=== PATIENT | female | born 1960 | race Caucasian/White ===

== ENCOUNTER → 2018-10-06 14:12 | Outpatient (CLI) | payer OTHER, SELFPAY ==
--- NOTE | 2018-10-06 14:18 | RAD_ITS ---
STUDY: X-RAY - PELVIS REASON FOR EXAM: Female, 57 years old. Inflammatory polyarthropathy. TECHNIQUE: One view of the pelvis was obtained. COMPARISON: None. FINDINGS: There is a non-specific bowel gas pattern. Normal visualized soft tissue structures. Normal bilateral iliac wings, sacroiliac joints and visualized sacrum. Normal visualized bilateral superior and inferior pubic rami. Normal pubic symphysis. Normal ischial tuberosities. Normal visualized right femoral head. Normal right acetabulum. Normal right hip joint. Normal visualized left femoral head. Normal left acetabulum. Normal left hip joint. RAD/Pelvis 1 or 2 Views IMPRESSION: Normal x-ray examination of the pelvis. Electronically Signed: Ramon Villegas MD at 0:00 EST , Service support ,
[2018-10-06 16:10] LABS: Vitamin D,25 Hydroxy 24.9 ng/mL (29.95-100.01)
[2018-10-06 16:11] LABS: AST(SGOT) 19 U/L (15-37); Alanine Aminotransfer ALT/SGPT 29 U/L (13-56); Albumin, Serum 3.9 g/dL (3.2-5.0); Alkaline Phosphatase 69 U/L (45-117); Anion Gap 8 (5-15); BUN 10 mg/dL (7-18); BUN/Creat Ratio 12.8 RATIO (10-20); CRP < 2.90 mg/L (0.0-3.0); Calcium,Total 8.6 mg/dL (8.5-10.1); Chloride 102 mmol/L (98-107); Creatinine, Serum 0.78 mg/dL (0.55-1.02); EST Glomerular Filtration Rate 80 mL/min (>60); Est Glom Filt Rate - Afr Amer 97 mL/min (>60); Globulin 3.9 g/dL (2.2-4.2); Glucose 95 mg/dL (74-106); Protein, Total 7.8 g/dL (6.4-8.2); Rheumatoid Factor < 10.0 IU/mL (<15); Sodium Level 139 mmol/L (136-145)
[2018-10-06 16:42] LABS: Erythrocyte Sedimentation Rate 2 mm/hr (0-30)
[2018-10-06 16:48] LABS: Absolute Lymphocyte Count 1.82 X10^3/ul (0.83-4.51); Absolute Neutrophil Count 4.6 X10^3/uL (2.0-7.7); Basophil# 0.04 X10^3/uL; Basophil% 0.6 % (0-1); Eosinophil# 0.19 X10^3/uL; Eosinophils% 2.7 % (0-5); Hematocrit 44.1 % (37-47); Hemoglobin 15.2 g/dl (12.0-15.0); Lymphocyte # 1.82 X10^3/ul (4.0); Lymphocyte % 25.4 % (19-41); Mean Corp Hgb Conc 34.5 g/gl (32-36); Mean Corpuscular Hgb 31.1 pg (27.0-32.0); Mean Corpuscular Volume 90.2 fL (81-99); Mean Platelet Vol. 10.5 fl (6.2-12.0); Monocyte# 0.49 X10^3/uL; Monocyte% 6.8 % (0-10); Neutrophil # 4.61 X10^3/uL (2.7-7.7); Neutrophil % 64.4 % (47-70); Platelet Count 291 K/mm3 (150-450); RBC Distribution Width SD 38.8 fl (35.1-43.9); Red Blood Count 4.89 M/mm3 (4.2-5.4); White Blood Count 7.2 K/mm3 (4.4-11.0)
[2018-10-06 17:00] LABS: POSITIVE COUNT NO; POSITIVE DIFFERENTIAL NO; POSITIVE MORPHOLOGY NO
[2018-10-09 12:11] LABS: ANTINUCLEAR ANTIBODIES DIRECT Negative (Negative)
[2018-10-14 09:38] LABS: HEPATITIS B SURFACE AG Negative (Negative); HLA B27 Negative (.); Hep B Surface Antibodies Non Reactive (.); Hep C Antibodies <0.1 s/co ratio (0.0-0.9)
== END ==
PROVIDERS: Family Provider Family Medicine; PCP Family Medicine; Referring Provider Internal Medicine Rheumatology; Visit Provider Internal Medicine Rheumatology
DX: M06.4 Inflammatory polyarthropathy (principal); M18.0 Bilateral primary osteoarthritis of first carpometacarpal joints
CPT/HCPCS: 36415; 72170; 80053; 81374; 82306; 85025; 85652; 86038; 86140; 86431; 86706; 86803; 87340

== ENCOUNTER → 2019-08-31 08:18 | Outpatient (CLI) | payer OTHER, SELFPAY ==
[2019-08-12 08:16] VITALS: BMI 18.3
--- NOTE | 2019-08-31 15:11 | PFTCOMP ---
COMPLETE PULMONARY FUNCTION TEST INTERPRETATION Brief HPI: Patient is a 58 year old female, currently under the care of myself, who presents to [facility] for complete pulmonary function tests secondary to diagnosis of dyspnea. Respiratory therapist reports good effort and reproducible results. Interpretation: Forced expiration spirometry shows no large airways obstructive ventilatory defect with an FEV1 of 82% predicted. There is no significant bronchodilator response by strict ATS criteria. Spirograms are of good quality and plateau normally. The respiratory flow volume loop shows a normal pattern. Lung volumes by body plethysmography show a normal total lung capacity at 4.93 L, 93% predicted. All other lung volumes are within normal limits. Diffusion capacity by carbon monoxide is normal at 103% predicted. The airway resistance is normal. No previous pulmonary function tests were available for review. Impression: These pulmonary function tests are within normal limits.
== END ==
PROVIDERS: Family Provider Family Medicine; PCP Family Medicine; Referring Provider Internal Medicine Critical Care Medicine; Visit Provider Internal Medicine Critical Care Medicine
DX: R06.00 Dyspnea, unspecified (principal)
CPT/HCPCS: 94060; 94726; 94729

== ENCOUNTER → 2020-10-20 10:58 | Outpatient (CLI) | payer OTHER, SELFPAY ==
[2020-10-04 14:07] VITALS: BMI 19.3
--- NOTE | 2020-10-20 11:04 | ECHOD_ITS ---
Reason For Study: PALPITATIONS Procedure This was a 2D Doppler, Color Flow transthoracic echocardiogram. Exam performed in department. Left Ventricle Normal LV size. The estimated ejection fraction is 60 %. Diastolic function is indeterminate. No regional wall motion abnormalities noted. Right Ventricle Normal RV size. Normal systolic function. Atria Normal left atrium. Normal right atrium. No doppler evidence for ASD. Mitral Valve There is no mitral valve stenosis. Mild (1+) mitral valve insufficiency. Tricuspid Valve There is no tricuspid stenosis. Trivial tricuspid valve insufficiency. Pulmonary artery systolic pressure is 20 mmHg. Aortic Valve Trisinus/trileaflet aortic valve. There is no aortic stenosis. No aortic valve insufficiency. Pulmonic Valve There is no pulmonic valvular stenosis. No pulmonic valve insufficiency. Great Vessels Normal aortic root. Pericardium/Pleural No pericardial effusion. MMode/2D Measurements & Calculations LVIDd: 3.8 cm IVSd: 0.73 cm Ao root diam: 3.1 cm LVIDs: 2.5 cm LVPWd: 0.87 cm RVDd: 3.2 cm FS: 34.9 % LAV(MOD-bp): 24.6 ml LVAd ap4: 20.8 cm2 SV(MOD-sp4): 27.1 ml LAV(MOD-bp) Indexed: 15.3 ml/m2 EDV(MOD-sp4): 49.4 ml LAV(MOD-sp2): 19.4 ml EDV(sp4-el): 51.5 ml LAV(MOD-sp4): 26.7 ml LVAs ap4: 12.5 cm2 ESV(MOD-sp4): 22.3 ml ESV(sp4-el): 22.8 ml EF(MOD-sp4): 54.9 % EF(sp4-el): 55.7 % SV(sp4-el): 28.7 ml LA A4 area: 11.5 cm2 LA dimension(2D): 3.2 cm RA A4 area: 8.8 cm2 Time Measurements MV dec time: 0.17 sec Doppler Measurements & Calculations MV E max leonides: 93.3 cm/sec Lat Peak E' Leonides: 7.4 cm/sec Med Peak E' Leonides: 5.1 cm/sec MV A max leonides: 70.0 cm/sec E/E' lat: 12.7 E/E' med: 18.3 MV E/A: 1.3 Ao V2 max: 95.7 cm/sec LV V1 max: 87.9 cm/sec PA V2 max: 83.6 cm/sec Ao max P.7 mmHg LV V1 max P.1 mmHg TR max leonides: 197.2 cm/sec TR max P.6 mmHg Interpretation Summary The estimated ejection fraction is 60 %. Diastolic function is indeterminate. Mild (1+) mitral valve insufficiency. Ordering Physician: Breana Noriega Referring Physician: AARON WILSON Performed By: Rica Sánchez, DENISE, RVT
--- NOTE | 2020-10-21 16:00 | STRESSREP ---
Stress Test Report Date: 10/20/2020 Procedure: Exercise tolerance test Indications: Chest pain Consent: Per the patient Procedure: The patient exercised on a Gavino protocol for 7 minutes achieving a peak heart rate of 150 bpm (93% predicted maximal heart rate) with a peak blood pressure 140/84 mmHg and a peak MET capacity of approximately 8.5 MET's. The baseline ECG demonstrated normal sinus rhythm. The peak exercise ECG demonstrated no significant ischemic ST-T changes. [There were no cardiac dysrhythmias pretest, during exercise, or recovery]. The functional capacity was considered normal for age. Patient had 4-5 over 10 chest tightness at peak exercise The examination was discontinued secondary to dyspnea, chest discomfort. Impression: 1. Technically adequate (percent predicted maximal heart rate greater than 85%) exercise tolerance test 2. Stress test is positive for exercise-induced chest pain. 3. Stress test test is negative for exercise-induced EKG changes of ischemia. 4. Functional capacity is normal for age This note was generated with [employer] software. It may contain incorrect words, spelling, and punctuation that were not noted in checking the note before signing.
== END ==
PROVIDERS: PCP Family Medicine; Referring Provider Specialist; Visit Provider Specialist
DX: R00.2 Palpitations (principal); R07.9 Chest pain, unspecified
CPT/HCPCS: 93017; 93306

== ENCOUNTER 2021-03-27 12:00 | Outpatient (RCR) | payer OTHER, SELFPAY ==
[2021-01-02 11:02] VITALS: BMI 20.5
--- NOTE | 2021-02-17 08:25 | HP.PTEVAL_ITS ---
Patient's Visit Information LOLA FALCON is a 60 year old F referred to Physical Therapy by Dr. Doni Marinelli MD with a diagnosis of adhesive capsulitis L shoulder. Date of Evaluation: 02/16/21 Physical Therapist: Rangel Whitaker DPT - Visit Plan Frequency: 2-3x /Week Duration: 4-6 Weeks Plan: Manipulation 02/15, improve ROM, strength, posture. progress end range PROM, AAROM, AROM as tolerated. Stress HEP consistency. Once ROM has been restored add in progressing scapular stability/strengthening. IE HEP: wall wash, table walk away, cane flexion, cane abduction - Subjective Pt reported that she has shoulder problems for 3 months. was helping sister move and it hurting more and then locked up. 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 Pt got maniupulation 02/15 and is feeling good so far still has nerve block. Pt reports that she had uppper trap tightness prior manipulation causing migraines. Pt is active- kayaking, gardening, sewing. pain: 7-8/10 sharp at top of shoulder, took pain pill this morning (percoset), still feels numbness from nerve block. sleep: slept in recliner and propped up arm on pillow. Meds: none besdies pain pills. PMHx: mitral valve prolapse, slightly high BP. lives at home with and daughter. goals: wants to improve ROM - Pain L shoulder Pain Intensity (Out of 10): 2 Pain Intensity Range: 0, 6 - Objective Posture: FH,RS, arm in sling. Gait: arm in sling with decreased arm swing. sensation: decreased sensation to light touch distal to biceps insertion. pt reports increasing sensation as session continued. AROM: flex: 30, abd: 25, unable to perform rest d/t numbness from nerve block. PROM: flex: 100, abd: 105, ER: 5 IR: to stomach. Strength: R shoulder: flex: 4+/5, abd/add: 4/5, ER/IR: 4/5, elbow: flex/ext: 5/5, biomedical engineering technician: 5/5 L UE not tested at this date d/t to presentation today - Goals Goal 1:: Pt will be I with HEP and progression Goal Time Frame: 4-6 Weeks Goal 2:: Pt will demonstrate improved PROM to WFL in flexion in order to promomte I functional mobility Goal Time Frame: 4-6 Weeks Goal 3:: Pt kathy demonstrate proper posture for entire session in order to promote scpaular stability Goal Time Frame: 4-6 Weeks Goal 4:: STG: Pt. to sleep without increase in symptoms. Goal Time Frame: 2-4 Weeks Goal 5:: STG: Pt. to have full L shoulder AROM with 0-1/10 pain in L shoulder. Goal Time Frame: 2-4 Weeks Goal 6:: LTG: PT. to have full L shoulder strength 5/5 without increase in symptoms. Goal Time Frame: 4-6 Weeks - Rehabilitation Potential Physical Therapy Diagnosis: Pt presents with decreased ROM, decreased strength in order to improve I functional mobility. Pt. would benefit from PT Rehabilitation Potential: Good - Anticipated Interventions Patient/Client Instruction: Educate patient on: Condition, Plan of Care For the Purpose of:: To improve muscle performance and motor function, To improve self management, To prevent re-injury, To improve ability to perform tasks related to life management, To improve tolerance to ADL's Therapeutic Exercise to Include: Strength training, Power training, Endurance training, Balance training, Coordination, Agility training, Body mechanics, Postural training, Flexibilty training, Passive ROM, Active ROM, Scapular Strength/Stabilization For the Purpose of:: To improve muscle performance and motor function, To increase tolerance to activity/condition/position Cryotherapy (ice pack, ice massage): Yes Thermo therapy (hot pack): Yes For the Purpose of:: To decrease pain, To increase ROM Thank you for the opportunity to evaluate your patient. For Medicare and Medicare HMO plans, please review the plan of care and approve it. It will need to be FAXED BACK to us at [phone] for Medicare purposes. For Medicare only, by signing this I certify the plan of care. Please let me know if there are questions or concerns regarding this plan of care. Physician Signature: Date:
--- NOTE | 2021-03-15 14:45 | HP.PTREVAL ---
Dr. Doni Marinelli MD, It has been my pleasure to treat LOLA FALCON over the last 10 visits for adhesive capsulitis L shoulder. Please see the progress note below for an update on the physical therapy plan of care! Subjective: Pt. reports I am doing pretty well, I think I am about 90% better overall. She reports having difficulty lifting her arm still. No issues with sleeping. Pt. reports wanting to get her strength back as well. Objective/Function: PROM: L shoulder- flexion 165deg, abd 160deg, ER at 90deg 85deg., IR at 90deg of abd 40deg. AROM: L shoulder- flexion 135deg, abd 125deg, functional ER C4 aberrant motion (difficulty getting ER motion, relies on flexion), functional IR L4. MMT: L shoulder- flexion 4/5, abd 4-/5, ER 4-/5, IR 5/5, ext 5/5. Pt. presents with greater weakness in all over head positions. Pt. still presenst with end range loss of motion, with empty end feel secondary to pain. Pain associated at subacromial space and tightness at lats on L side. Plan Plan: Added x2 per week for another 3-4 weeks with focus on end range of motion and progressing strengthening of deltoid and RTC. Goals Goal 1:: Pt will be I with HEP and progression Goal Time Frame: 4-6 Weeks Goal 2:: Pt will demonstrate improved PROM to WFL in flexion in order to promomte I functional mobility Goal Time Frame: 4-6 Weeks Goal 3:: Pt kathy demonstrate proper posture for entire session in order to promote scpaular stability Goal Time Frame: 4-6 Weeks Goal 4:: STG: Pt. to sleep without increase in symptoms. Goal Time Frame: 2-4 Weeks Goal 5:: STG: Pt. to have full L shoulder AROM with 0-1/10 pain in L shoulder. Goal Time Frame: 2-4 Weeks Goal 6:: LTG: PT. to have full L shoulder strength 5/5 without increase in symptoms. Goal Time Frame: 4-6 Weeks Anticipated Interventions Patient/Client Instruction: Educate patient on: Condition, Plan of Care For the Purpose of:: To improve muscle performance and motor function, To improve self management, To prevent re-injury, To improve ability to perform tasks related to life management, To improve tolerance to ADL's Therapeutic Exercise to Include: Strength training, Power training, Endurance training, Balance training, Coordination, Agility training, Body mechanics, Postural training, Flexibilty training, Passive ROM, Active ROM, Scapular Strength/Stabilization For the Purpose of:: To improve muscle performance and motor function, To increase tolerance to activity/condition/position Cryotherapy (ice pack, ice massage): Yes Thermo therapy (hot pack): Yes For the Purpose of:: To decrease pain, To increase ROM Please do not hesitate to contact me at [phone] by phone or if you have questions or concerns regarding this new plan of care! Sincerely, RUSSEL SeayT
== END 2021-03-27 19:00 | disposition home or self-care (01) ==
LOC: PT 12:00
PROVIDERS: PCP Family Medicine; Referring Provider Orthopaedic Surgery; Visit Provider Orthopaedic Surgery
DX: M75.02 Adhesive capsulitis of left shoulder (principal)
CPT/HCPCS: 97110; 97140; 97162; 97164; 97530

== ENCOUNTER → 2021-11-23 16:28 | Outpatient (CLI) | payer OTHER, SELFPAY ==
[2021-11-23 17:21] LABS: Absolute Lymphocyte Count 2.38 X10^3/uL (0.83-4.51); Absolute Neutrophil Count 3.2 X10^3/uL (2.0-7.7); Basophil# 0.06 X10^3/uL; Eosinophil# 0.19 X10^3/uL; Hematocrit 41.8 % (37-47); Hemoglobin 14.2 g/dL (12.0-15.0); Lymphocyte # 2.38 X10^3/ul (0.83-4.51); Lymphocyte % 37.8 % (19-41); Mean Corpuscular Volume 88.4 fL (81-99); Mean Platelet Vol. 9.6 fl (6.2-12.0); Monocyte# 0.43 X10^3/uL; Monocyte% 6.8 % (0-10); NRBC Flagged by Analyzer 0 % (0-5); Neutrophil # 3.23 X10^3/uL (2.7-7.7); Neutrophil % 51.2 % (47-70); Platelet Count 307 K/mm3 (150-450); RBC Distribution Width SD 38.8 fl (35.1-43.9); Red Blood Count 4.73 M/mm3 (4.2-5.4); White Blood Count 6.3 K/mm3 (4.4-11.0)
[2021-11-23 18:28] LABS: Vitamin D,25 Hydroxy 32.6 ng/mL
[2021-11-23 18:30] LABS: ALB/GLOB Ratio 1.1 RATIO (0.9-2.4); AST(SGOT) 18 U/L (15-37); Alanine Aminotransfer ALT/SGPT 28 U/L (13-56); Albumin, Serum 3.6 g/dL (3.2-5.0); Alkaline Phosphatase 63 U/L (45-117); Anion Gap 10 (5-15); BUN 8 mg/dL (7-18); BUN/Creat Ratio 11.4 RATIO (10-20); Calcium,Total 8.6 mg/dL (8.5-10.1); Chloride 106 mmol/L (98-107); EST Glomerular Filtration Rate 90 mL/min (>60); Est Glom Filt Rate - Afr Amer 109 mL/min (>60); Globulin 3.3 g/dL (2.2-4.2); Glucose 90 mg/dL (74-106); Potassium 4.1 mmol/L (3.5-5.1); Protein, Total 6.9 g/dL (6.4-8.2); Sodium Level 141 mmol/L (136-145)
== END ==
PROVIDERS: PCP Family Medicine; Referring Provider Family Medicine; Visit Provider Family Medicine
DX: K21.9 Gastro-esophageal reflux disease without esophagitis (principal); E55.9 Vitamin D deficiency, unspecified
CPT/HCPCS: 36415; 80053; 82306; 85025

== ENCOUNTER 2022-03-31 16:30 | Emergency (ER) | payer OTHER, SELFPAY ==
[2022-03-31 16:32] VITALS: BP 129/82; PULSE 78; RESP 16; TEMP 36.8; O2SAT 95; BMI 18.6
--- NOTE | 2022-03-31 16:48 | EX.ED.DYSGE1 ---
HPI History of Present Illness Chief Complaint: Lower Extremity Injury Informant: patient Narrative Narrative: 61-year-old female arriving to the emergency department for evaluation after a fall. Patient states that she was attempting to ride a skateboard when she slipped off of it and fell onto her back. She notes pain in the left elbow with associated abrasions as well as pain in the lower back. She states that it is extremely painful to attempt to bear any weight. She states she feels a clicking sensation in her left elbow. She denies any upper back neck head chest or abdominal symptoms. PFSH PFS Medical History Acute pharyngitis, unspecified Cystocele Diverticulosis Dyspnea History of intestinal obstruction History of kidney stones Hypotension Insomnia Lab test negative for COVID-19 virus Macular degeneration Mild intermittent asthma Mitral valve prolapse Osteoarthritis Osteopenia Palpitations Uterine prolapse Home Medications calcium carbonate 500 mg calcium (1,250 mg) tablet 500 mg PO DAILY 10/04/20 [History Last Taken Unknown] cholecalciferol (vitamin D3) 125 mcg (5,000 unit) tablet 125 mcg PO DAILY 10/04/20 [History Last Taken Unknown] ibandronate 150 mg tablet 150 mg PO QMONTH 01/02/22 [History Last Taken Unknown] omeprazole 20 mg capsule,delayed release 20 mg PO DAILY 01/02/22 [History Last Taken Unknown] hydrocodone-acetaminophen 1 tab PO Q6H PRN PRN 3 Days #12 tablet 03/31/22 [Rx Last Taken Unknown] Allergy/AdvReac Type Severity Reaction Status Date / Time No Known Allergies Allergy Verified 03/31/22 16:36 Family History Mother COPD (chronic obstructive pulmonary disease) Hypertension Arrhythmia Surgical History History of colonoscopy History of laparoscopy Social History Smoking Status: Never smoker alcohol intake: current alcohol intake frequency: a few times a month Alcohol type: wine substance use type: does not use caffeine: Yes Type: coffee ROS ROS ED Constitutional Constitutional ED: Denies chills, fever(s) or weight loss Eyes Eyes: Denies change in vision or diplopia ENT ENT ED: Denies ear pain, rhinorrhea or sore throat Cardiovascular Cardiovascular: Denies chest pain, orthopnea, palpitations or racing heartbeat Respiratory/Chest Respiratory/Chest: Denies cough, dyspnea or orthopnea Gastrointestinal Gastrointestinal: Denies abdominal pain, diarrhea, nausea or vomiting Genitourinary Genitourinary ED: Denies dysuria, hematuria or urinary frequency Musculoskeletal Musculoskeletal: Reports back pain and other Details: Left elbow pain ; Denies arthralgias or myalgias Integumentary Denies abscess or rash Neurologic Neurologic: Denies headache(s) or weakness Psychiatric Psychiatric: Denies anxiety, depression, suicidal ideation or suicidal thoughts Endocrine Endocrinology: Denies polydipsia, polyphagia or polyuria Allergic/Immunologic Allergic/Immunologic ED: Denies mouth swelling, tongue swelling or urticaria EXAM Physical Exam Const Vital Signs: 03/31/22 16:32 Temperature 98.2 F Temperature Source Oral Pulse Rate 78 Respiratory Rate 16 Blood Pressure 129/82 H Blood Pressure Mean 97 Pulse Ox 95 Oxygen Delivery Method Room Air Positive well nourished and well developed General Appearance ED: well developed HEENT Reports normocephalic, head/scalp atraumatic, TM's clear and moist mucous membranes Negative for trauma Tympanic Membrane ED: Yes TM's clear Eyes PERRL and EOMs intact bilaterally Neck no lymphadenopathy, supple and no JVD Resp normal respiratory effort and clear to auscultation bilaterally Cardio regular rate, regular rhythm and no murmurs GI normal to inspection, nondistended, normoactive bowel sounds and non-tender Palpation: soft Back/Spine no CVA tenderness and normal ROM Back/Spine Narrative: Patient has tenderness to palpation over the lower lumbar Extremity Extremity Narrative: Patient has contusion and abrasions to the left elbow. Painful range of motion. Neurovascular intact distal. General Extremety ED: Negative for edema General Extremity: Negative for edema Neuro oriented x3 and CN's II-XII intact bilaterally Sensorium / Orientation: alert Motor Exam: strength 5/5 throughout Psych mental status grossly normal Mood & Affect: Negative for depressed or tearful Skin no rashes or lesions noted and no wounds MDM MDM MDM Narrative Medical decision making narrative: My interpretation of the plain films of lumbar spine is no acute fracture. My interpretation of the plain films of the left elbow is a comminuted olecranon fracture. Patient was placed in a posterior long-arm splint made from [employer] and sling. She was given Thompson. Family has asked multiple times why we have not x-rayed her hips and the answer to that is that she has no pain in her hips. She points to the lower right lumbar area as the area that hurts. I specifically palpated the hips and the iliac crest in front of the family and the patient has no pain there. Therefore I do not feel that x-rays are indicated of the hip. Patient is able to ambulate down the hallway to the bathroom. Radiography Diagnostic Testing: Clinical Impression(s) from Imaging Studies Elbow X-Ray 03/31/22 17:04 IMPRESSION: Incompletely evaluated fracture olecranon with concern for intra-articular extension through the trochlear notch. Repeat lateral view is recommended. Electronically Signed: Osmar Merritt DO at 18:37 EDT , Lumbar Spine X-Ray 03/31/22 17:04 IMPRESSION: No evidence of lumbar spinal fracture or spondylolisthesis. Electronically Signed: Osmar Merritt DO at 18:32 EDT , Discharge Plan Triage Chief Complaint: Lower Extremity Injury ED Provider: Kartik Nolasco Dx/Rx/DC Orders Clinical Impression: Fracture of left olecranon process, Fall, Acute lumbar myofascial strain Prescriptions: New hydrocodone-acetaminophen [hydrocodone-acetaminophen] 1 TABLET tablet 1 tab PO Q6H PRN PRN (Reason: Pain) 3 Days Qty: 12 RF: 0 No Action cholecalciferol (vitamin D3) 125 mcg (5,000 unit) tablet 125 mcg PO DAILY RF: 0 calcium carbonate 500 mg calcium (1,250 mg) tablet 500 mg PO DAILY RF: 0 omeprazole 20 mg capsule,delayed release(DR/EC) 20 mg PO DAILY RF: 0 ibandronate [Boniva] 150 mg tablet 150 mg PO QMONTH RF: 0 Primary Care Provider: Mahesh Negron Referrals: Mahesh Negron MD [Primary Care Provider] - Osmar Downing DO [STAFF PHYSICIAN] - As soon as possible (for orthopedics or the orthopedist of your choice) Disposition Disposition: Home, Self Care
[2022-03-31] MEDS: HYDROcodone Bitartrate/Apap 5/325 Tablet PO (16:56)
--- NOTE | 2022-03-31 17:04 | RAD_ITS ---
INDICATION: injury EXAMINATION/TECHNIQUE: X-RAY - XR Spine Lumbar 2 or 3 Views COMPARISON: None. FINDINGS: VERTEBRAE: Preserved vertebral body height. No fracture. No spondylolisthesis. Preservation of the normal lumbar lordosis. No significant facet arthropathy. DISCS: Minimal intervertebral disc height loss with no degenerative endplate changes. No significant facet arthropathy. Sacroiliac joints are normal. INCLUDED ABDOMEN: Included bowel gas pattern is non-obstructive. RAD/Lumbar Spine 2 or 3 Views IMPRESSION: No evidence of lumbar spinal fracture or spondylolisthesis. Electronically Signed: Osmar Merritt DO at 18:32 EDT ,
--- NOTE | 2022-03-31 17:04 | RAD_ITS ---
INDICATION: injury EXAMINATION/TECHNIQUE: X-RAY - LEFT XR Elbow Min 3 Views COMPARISON: None. FINDINGS: SOFT TISSUES: Soft tissue swelling dorsal elbow. There is also mild displacement of the anterior fat pad. No radiopaque foreign body. BONES/JOINTS: There is a fracture of the posterior olecranon. Fracture assessment is suboptimal due to abnormally obliqued lateral view. Extent of fracture cannot be completely ascertained however the fracture is suspected to extend through the trochlear notch; repeat lateral view recommended. No appreciable abnormal radiocapitellar or ulnar trochlear alignment. RAD/Elbow min 3 Views IMPRESSION: Incompletely evaluated fracture olecranon with concern for intra-articular extension through the trochlear notch. Repeat lateral view is recommended. Electronically Signed: Osmar Merritt DO at 18:37 EDT ,
[2022-03-31 18:58] VITALS: BP 122/88; PULSE 71; O2SAT 97
== END 2022-03-31 19:10 | disposition home or self-care (01) ==
PROVIDERS: Emergency Provider Emergency Medicine; PCP Family Medicine; Visit Provider Emergency Medicine
DX: S52.022A Displaced fracture of olecranon process without intraarticular extension of left ulna, initial encounter for closed fracture (principal); S39.012A Strain of muscle, fascia and tendon of lower back, initial encounter; W19.XXXA Unspecified fall, initial encounter
CPT/HCPCS: 72100; 73080; 99285

== ENCOUNTER 2022-07-11 12:30 | Outpatient (RCR) | payer OTHER, SELFPAY ==
--- NOTE | 2022-06-21 11:02 | HP.PTEVAL ---
Patient's Visit Information LOLA FALCON is a 61 year old F referred to Physical Therapy by GÉNESIS HOFFMAN with a diagnosis of closed fracture olecranon process ulna 03/30 with surgery. Date of Evaluation: 06/21/22 Physical Therapist: José Manuel Galaviz, RUSSELT, OCS, CSCS - Visit Plan Frequency: 2-3x /Week Duration: 4-6 Weeks Plan: 3x/week for 3-6 weeks. 1. MH and STM to post elbow and L UT, manual elbow mobs for ROM grade 4 and STM PROM L elbow , wrist and cervical for L rotation as needed. 2. strength L UE and posture. 3. return to function activity, paddling kayak. progress HEP - Subjective Skateboarding with nika on march 30 and hit ground with L elbow and needed pins to fix fracture. 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 Doing some shoulder exercises adn self therapy adn keeping it moving but stillmissing flexion and extension. Hand still swells. Doctor expects her to get her motion back. It hurts to put weight through it to scoot butt. Gripping is still weak. Hurts to make fist. Was in cast for a 4 weeks at first. Not much pain unless forcing bending or lifting heavy 5/10 transiently. Sleeping OK. retired. Kayaking and biking and playing on skatebard and yoga. Cannot do UE WB yoga, has not been kayaking, rides bike. Weight through arms on bike is OK for the most part just feels weak. - Pain L elbow Pain Intensity (Out of 10): 0 Pain Intensity Range: 0, 5 - Objective Posture is forward head and L scap forward. AROM elbows:L elbow -14 extension (-0 on R). L elbow to 148 flexion vs 163 on R. L rotation cervical is 50 L and 80 R feeling tight in UT and is tender here also. Sensitive to touch on L elbow posterior incision but healed well and no evidence of swelling or infection. L shoulder AROM tight posterior L arm/tricep, functional at 135 vs 150 on R. reflexes 2/3 bi and tri. wrist extension and flexion L -5 degrees vs R side. weakness evident in L UE shoulder and wrist and elbow vs R. Some discomfort with contraction limiting her strength L side. - Balance/Special Test Scores Quick DASH Score: 45.4525 - Goals Goal 1:: Pt have full aROM L elbow without pain or hesitation Goal Time Frame: 4-6 Weeks Goal 2:: Pain 0-1/10 aat all times and 90% better overall. Goal Time Frame: 4-6 Weeks Goal 3:: paddle kayak without concerns L elbow Goal Time Frame: 4-6 Weeks Goal 4:: Pt do hair and wash upper back without pain l elbow. Goal Time Frame: 4-6 Weeks Goal 5:: quickdash score 15 or less Goal Time Frame: 4-6 Weeks - Rehabilitation Potential Physical Therapy Diagnosis: ROM and strength adn pain limitation L ebow after fracture. Rehabilitation Potential: Good - Anticipated Interventions Patient/Client Instruction: Educate patient on: Condition, Plan of Care For the Purpose of:: To decrease pain, To increase ROM, To improve nutrient delivery to tissue, To improve muscle performance and motor function, To increase tolerance to activity/condition/position, To improve ability of physical actions for home/community/work/leisure Therapeutic Exercise to Include: Strength training, Postural training, Flexibilty training, Passive ROM, Active ROM, Scapular Strength/Stabilization For the Purpose of:: To decrease pain, To increase ROM, To improve muscle performance and motor function, To increase tolerance to activity/condition/position, To improve ability of physical actions for home/community/work/leisure Manual Therapy Techniques to Include: Mobilization, Passive ROM, Soft tissue mobilization For the Purpose of:: To increase ROM Thermo therapy (hot pack): Yes For the Purpose of:: To increase ROM, To improve nutrient delivery to tissue Thank you for the opportunity to evaluate your patient. For Medicare and Medicare HMO plans, please review the plan of care and approve it. It will need to be FAXED BACK to us at [phone] for Medicare purposes. For Medicare only, by signing this I certify the plan of care. Please let me know if there are questions or concerns regarding this plan of care. Physician Signature: Date:
--- NOTE | 2022-07-11 13:15 | HP.PTDCSUM ---
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 Discharge Date: 07/11/22 Please see the following information for a summary of their discharge status. Subjective: I think I am ready to be done. Pain is a little in L upper arm to 5/10 but gone with exercises. Sleep is fine. To doctor after therapy. Putting weight through arm is stilla voided at time but more due to hesitation then tolerance. HEP: stretches on counter adn wall and weights. L elbow Pain Intensity (Out of 10): 0 L UT Pain Intensity (Out of 10): 0 % Improvement: 85 Objective/Function: -7 ext AROM and -4 PROM, full extension B. Uses it well to reach behind back and behind head. Strength is functional and improving. Goal 1:: Pt have full aROM L elbow without pain or hesitation Goal Progress: Progressing Goal 2:: Pain 0-1/10 aat all times and 90% better overall. Goal Progress: Progressing Goal 3:: paddle kayak without concerns L elbow Goal Progress: will do next week. Goal 4:: Pt do hair and wash upper back without pain l elbow. Goal Progress: Goal Met Goal 5:: quickdash score 15 or less Goal Progress: Progressing Plan: d/c, pt request adn will continue via HEP Discharge Comments: Pt to call and schedule with doctor. Wishes to be done with PT at this point and will continue HEP of ROM and strengthening. If there are questions or concerns regarding this patient's physical therapy, please feel free to call me at [phone]. Thank you for the referral of this patient. Sincerely, José Manuel Galaviz, DPT, OCS, CSCS Balance/Gait/Functional tests - Balance/Special Test Scores Quick DASH Score: 22.5000
== END 2022-07-11 13:52 | disposition home or self-care (01) ==
LOC: PT 12:30
PROVIDERS: PCP Family Medicine
DX: S52.022D Displaced fracture of olecranon process without intraarticular extension of left ulna, subsequent encounter for closed fracture with routine healing (principal); X58.XXXD Exposure to other specified factors, subsequent encounter
CPT/HCPCS: 97110; 97140; 97161; 97164

== ENCOUNTER → 2023-07-19 | Outpatient (CLI) | payer BC, SELFPAY ==
[2023-07-19 12:31] LABS: Absolute Lymphocyte Count 1.98 X10^3/uL (0.83-4.51); Absolute Neutrophil Count 5.1 X10^3/uL (2.0-7.7); Basophil# 0.07 X10^3/uL; Basophil% 0.9 % (0-1); Eosinophil# 0.22 X10^3/uL; Eosinophils% 2.8 % (0-5); Hematocrit 46.2 % (37-47); Lymphocyte # 1.98 X10^3/ul (0.83-4.51); Lymphocyte % 25.2 % (19-41); Mean Corp Hgb Conc 32.5 g/dL (32-36); Mean Corpuscular Hgb 29.7 pg (27.0-32.0); Mean Corpuscular Volume 91.5 fL (81-99); Mean Platelet Vol. 9.7 fl (6.2-12.0); Monocyte# 0.51 X10^3/uL; Monocyte% 6.5 % (0-10); NRBC Flagged by Analyzer 0 % (0-5); Neutrophil # 5.05 X10^3/uL (2.7-7.7); Neutrophil % 64.2 % (47-70); Platelet Count 314 K/mm3 (150-450); RBC Distribution Width CV 12.3 % (11.6-14.6); RBC Distribution Width SD 41.1 fl (35.1-43.9); Red Blood Count 5.05 M/mm3 (4.2-5.4); White Blood Count 7.9 K/mm3 (4.4-11.0)
[2023-07-19 13:24] LABS: Anion Gap 4 (5-15); BUN 11 mg/dL (7-18); BUN/Creat Ratio 15.5 RATIO (10-20); Calcium,Total 9.1 mg/dL (8.5-10.1); Chloride 107 mmol/L (98-107); Creatinine, Serum 0.71 mg/dL (0.55-1.02); EST Glomerular Filtration Rate 89 mL/min (>60); Est Glom Filt Rate - Afr Amer 107 mL/min (>60); Glucose 94 mg/dL (74-106); Magnesium 2.2 mg/dL (1.6-2.6); Potassium 4.1 mmol/L (3.5-5.1); Sodium Level 139 mmol/L (136-145); Thyroid Stim Hormone (TSH) 1.06 uIU/mL (0.358-3.74)
== END | disposition home or self-care (01) ==
LOC: LAB 11:59
PROVIDERS: PCP Family Medicine; Referring Provider Nurse Practitioner Gerontology; Visit Provider Nurse Practitioner Gerontology
DX: R00.2 Palpitations (principal)
CPT/HCPCS: 36415; 80048; 83735; 84443; 85025

== ENCOUNTER → 2023-08-15 | Outpatient (CLI) | payer BC, SELFPAY ==
--- NOTE | 2023-08-15 12:58 | ECHOD_ITS ---
Reason For Study: Palpitations Procedure This was a 2D Doppler, Color Flow transthoracic echocardiogram. Exam performed in department. Left Ventricle Normal LV size. Left ventricular systolic function is normal. The estimated ejection fraction is 60 %. No regional wall motion abnormalities noted. Right Ventricle Normal RV size. Normal systolic function. Atria Normal left atrium. Normal right atrium. Bubble contrast study negative for right to left interatrial shunt. Mitral Valve Mild mitral valve prolapse. Mild (1+) eccentric mitral valve insufficiency. Tricuspid Valve Normal tricuspid valve. Aortic Valve Trisinus/trileaflet aortic valve. Pulmonic Valve Normal pulmonic valve. Great Vessels Normal aortic root. The pulmonary artery is normal size. Normal inferior vena cava. Pericardium/Pleural No pericardial effusion. Medication 22 gauge I.V. with prn adaptor inserted into right arm. Performed a rapid injection of agitated mix of 9 cc saline and 1cc air to assess for atrial septal defect. MMode/2D Measurements & Calculations LVIDd: 4.2 cm IVSd: 0.58 cm Ao root diam: 3.3 cm LVIDs: 2.6 cm LVPWd: 0.72 cm LA dimension: 3.4 cm RVDd: 3.2 cm FS: 38.7 % LAV(MOD-bp): 29.4 ml LA A4 area: 12.8 cm2 RA A4 area: 10.9 cm2 LAV(MOD-bp) Indexed: 18.6 ml/m2 LAV(MOD-sp2): 26.1 ml LAV(MOD-sp4): 27.3 ml TAPSE: 1.2 cm Time Measurements MV dec time: 0.17 sec Doppler Measurements & Calculations MV E max leonides: 87.2 cm/sec Lat Peak E' Leonides: 10.1 cm/sec Med Peak E' Leonides: 6.2 cm/sec MV A max leonides: 89.0 cm/sec E/E' lat: 8.7 E/E' med: 14.1 MV E/A: 0.98 MV V2 max: 88.8 cm/sec MV P1/2t max leonides: 85.7 cm/sec Ao V2 max: 89.9 cm/sec MV max P.2 mmHg MV P1/2t: 51.8 msec Ao max P.2 mmHg MV V2 mean: 48.5 cm/sec MV dec slope: 484.9 cm/sec2 MV mean P.1 mmHg MVA(P1/2t): 4.2 cm2 MV V2 VTI: 22.9 cm LV V1 max: 68.0 cm/sec MR max leonides: 537.4 cm/sec PA V2 max: 79.4 cm/sec LV V1 max P.9 mmHg MR max P.5 mmHg PA V2 mean: 57.2 cm/sec MR mean leonides: 422.8 cm/sec MR mean P.2 mmHg MR VTI: 187.9 cm TR max leonides: 168.0 cm/sec TR max P.3 mmHg ECHO/Echo Complete Interpretation Summary Normal LV size. Left ventricular systolic function is normal. The estimated ejection fraction is 60 %. No regional wall motion abnormalities noted. Bubble contrast study negative for right to left interatrial shunt. Ordering Physician: Tanna Martins Referring Physician: Tanna Martins Performed By: Duy Padilla RCS
== END | disposition home or self-care (01) ==
LOC: CVS 12:58
PROVIDERS: PCP Family Medicine; Referring Provider Nurse Practitioner Gerontology; Visit Provider Nurse Practitioner Gerontology
DX: R00.2 Palpitations (principal); I34.1 Nonrheumatic mitral (valve) prolapse
CPT/HCPCS: 93306; A4216

== ENCOUNTER → 2024-04-17 | Outpatient (CLI) | payer BC, SELFPAY ==
[2024-04-17 17:42] LABS: Absolute Lymphocyte Count 1.98 X10^3/uL (0.83-4.51); Absolute Neutrophil Count 4.8 X10^3/uL (2.0-7.7); Basophil# 0.06 X10^3/uL; Basophil% 0.8 % (0-1); Eosinophil# 0.22 X10^3/uL; Eosinophils% 2.9 % (0-5); Hematocrit 45.2 % (37-47); Hemoglobin 14.7 g/dL (12.0-15.0); Lymphocyte # 1.98 X10^3/ul (0.83-4.51); Lymphocyte % 26.1 % (19-41); Mean Corp Hgb Conc 32.5 g/dL (32-36); Mean Corpuscular Hgb 29.1 pg (27.0-32.0); Mean Corpuscular Volume 89.3 fL (81-99); Mean Platelet Vol. 9.6 fl (6.2-12.0); Monocyte# 0.52 X10^3/uL; Monocyte% 6.9 % (0-10); NRBC Flagged by Analyzer 0 % (0-5); Neutrophil # 4.77 X10^3/uL (2.7-7.7); Neutrophil % 62.9 % (47-70); Platelet Count 311 K/mm3 (150-450); RBC Distribution Width CV 12.3 % (11.6-14.6); Red Blood Count 5.06 M/mm3 (4.2-5.4); White Blood Count 7.6 K/mm3 (4.4-11.0)
[2024-04-17 17:49] LABS: ALB/GLOB Ratio 0.9 RATIO (0.9-2.4); AST(SGOT) 22 U/L (15-37); Alanine Aminotransfer ALT/SGPT 29 U/L (13-56); Albumin, Serum 3.6 g/dL (3.2-5.0); Alkaline Phosphatase 83 U/L (45-117); Anion Gap 6 (5-15); BUN 10 mg/dL (7-18); BUN/Creat Ratio 14.9 RATIO (10-20); Calcium,Total 8.7 mg/dL (8.5-10.1); Chloride 107 mmol/L (98-107); Creatinine, Serum 0.67 mg/dL (0.55-1.02); EST Glomerular Filtration Rate 94 mL/min (>60); Est Glom Filt Rate - Afr Amer 114 mL/min (>60); Globulin 3.9 g/dL (2.2-4.2); Glucose 84 mg/dL (74-106); Potassium 3.8 mmol/L (3.5-5.1); Protein, Total 7.5 g/dL (6.4-8.2); Sodium Level 140 mmol/L (136-145)
[2024-04-17 17:50] LABS: Vitamin D,25 Hydroxy 39.3 ng/mL
[2024-04-20 16:56] LABS: Deamidated Gliadin IgA 9 units (0-19); Deamidated Gliadin IgG 4 units (0-19); Endomysial Antibody IgA Negative (Negative); Immunoglobulin A 339 mg/dL (87-352); t-Transglutaminase IgA <2 U/mL (0-3)
== END | disposition home or self-care (01) ==
PROVIDERS: PCP Family Medicine; Referring Provider Family Medicine; Visit Provider Family Medicine
DX: M81.0 Age-related osteoporosis without current pathological fracture (principal); R14.0 Abdominal distension (gaseous); K21.9 Gastro-esophageal reflux disease without esophagitis
CPT/HCPCS: 36415; 80053; 82306; 82784; 83516; 85025; 86255

== ENCOUNTER → 2024-04-30 | Outpatient (CLI) | payer BC, SELFPAY ==
--- NOTE | 2024-04-30 08:57 | US_ITS ---
STUDY: ULTRASOUND BREAST - LEFT REASON FOR EXAM: Female, 63 years old. Abnormal screening mammogram. TECHNIQUE: Axial and longitudinal images of the LEFT breast were performed with a high resolution ultrasound transducer. # OF IMAGES: 6 COMPARISON: Comparison is made with prior outside mammogram dated April 08, 2024. FINDINGS: LEFT Breast: There is a 4 mm x 5 mm x 4 mm cyst at the 12:00 position of the breast at 3 cm from the nipple. US/Breast Limited Unilateral IMPRESSION: 4 mm x 5 mm x 4 mm cyst at the 12:00 position of the breast at 3 cm from the nipple. ASSESSMENT CATEGORY: BIRADS Category 2: Benign. A letter regarding these results will be sent to the patient by the facility within 30 days. Electronically Signed: Rodrick Cruz MD at 11:20 EDT ,
== END | disposition home or self-care (01) ==
LOC: OPBI 08:53
PROVIDERS: PCP Family Medicine; Referring Provider Family Medicine; Visit Provider Family Medicine
DX: N63.0 Unspecified lump in unspecified breast (principal)
CPT/HCPCS: 76642

== ENCOUNTER → 2024-10-20 | Outpatient (CLI) | payer OTHER, SELFPAY ==
[2024-10-20 12:13] LABS: Absolute Lymphocyte Count 1.65 X10^3/uL (0.83-4.51); Absolute Neutrophil Count 3.2 X10^3/uL (2.0-7.7); Basophil# 0.06 X10^3/uL; Basophil% 1.1 % (0-1); Eosinophil# 0.27 X10^3/uL; Eosinophils% 4.8 % (0-5); Hematocrit 41.6 % (37-47); Hemoglobin 13.6 g/dL (12.0-15.0); Lymphocyte # 1.65 X10^3/ul (0.83-4.51); Lymphocyte % 29.6 % (19-41); Mean Corp Hgb Conc 32.7 g/dL (32-36); Mean Corpuscular Hgb 29.3 pg (27.0-32.0); Mean Corpuscular Volume 89.7 fL (81-99); Mean Platelet Vol. 9.8 fl (6.2-12.0); Monocyte% 7.2 % (0-10); NRBC Flagged by Analyzer 0 % (0-5); Neutrophil # 3.17 X10^3/uL (2.7-7.7); Neutrophil % 56.9 % (47-70); Platelet Count 286 K/mm3 (150-450); RBC Distribution Width CV 12.3 % (11.6-14.6); RBC Distribution Width SD 40.2 fl (35.1-43.9); Red Blood Count 4.64 M/mm3 (4.2-5.4); White Blood Count 5.6 K/mm3 (4.4-11.0)
[2024-10-20 12:26] LABS: Vitamin D,25 Hydroxy 26.8 ng/mL
[2024-10-20 12:33] LABS: ALB/GLOB Ratio 0.9 RATIO (0.9-2.4); AST(SGOT) 22 U/L (15-37); Alanine Aminotransfer ALT/SGPT 27 U/L (13-56); Albumin, Serum 3.4 g/dL (3.2-5.0); Alkaline Phosphatase 96 U/L (45-117); Anion Gap 2 (5-15); BUN 12 mg/dL (7-18); BUN/Creat Ratio 15.9 RATIO (10-20); Calcium,Total 8.9 mg/dL (8.5-10.1); Chloride 106 mmol/L (98-107); Creatinine, Serum 0.76 mg/dL (0.55-1.02); EST Glomerular Filtration Rate 82 mL/min (>60); Est Glom Filt Rate - Afr Amer 99 mL/min (>60); Globulin 3.8 g/dL (2.2-4.2); Glucose 92 mg/dL (74-106); Potassium 3.8 mmol/L (3.5-5.1); Protein, Total 7.2 g/dL (6.4-8.2); Sodium Level 136 mmol/L (136-145)
== END | disposition home or self-care (01) ==
PROVIDERS: PCP Family Medicine; Visit Provider Family Medicine
DX: M81.0 Age-related osteoporosis without current pathological fracture (principal); K21.9 Gastro-esophageal reflux disease without esophagitis
CPT/HCPCS: 36415; 80053; 82306; 85025

== ENCOUNTER → 2025-02-16 | Outpatient (CLI) | payer OTHER, SELFPAY | END | disposition home or self-care (01) | LOC: LABSPEC 16:10 | PROVIDERS: PCP Family Medicine; Visit Provider Family Medicine | DX: N39.0 Urinary tract infection, site not specified (principal) | CPT/HCPCS: 87086 ==